=== PATIENT | male | born 1965 | race Caucasian/White ===

== ENCOUNTER → 2023-01-12 | Outpatient (CLI) | payer BC ==
--- NOTE | 2023-01-13 09:41 | CTL ---
Addendum: There is a small hiatal hernia. Lower soft tissues of the neck demonstrate no acute abnormality.
== END | disposition home or self-care (01) ==
LOC: RADCTMAIN 17:06
PROVIDERS: ATTEND Family Medicine
DX: Z12.2 Encounter for screening for malignant neoplasm of respiratory organs (principal); F17.210 Nicotine dependence, cigarettes, uncomplicated; J44.9 Chronic obstructive pulmonary disease, unspecified; I25.10 Atherosclerotic heart disease of native coronary artery without angina pectoris; I51.7 Cardiomegaly
CPT/HCPCS: 71271

== ENCOUNTER 2024-04-10 20:23 | Emergency (ER) | payer OTHER, BC ==
--- NOTE | 2024-04-10 21:20 | ED ---
Lower Extremity Injury HPI - General Chief Complaint: Extremity Injury, Lower Stated Complaint: R leg injury Time Seen by Provider: 04/10/24 21:11 Source: patient, RN notes reviewed Mode of arrival: ambulatory Limitations: no limitations - History of Present Illness Initial Comments: 58-year-old male presenting to the ER with chief complaint of right lower leg injury 2 hours ago. States he was at work when a trailer to a truck accidentally fell on his right chin. States he has a cut on his chin. Denies active bleeding. Denies blood thinners. He is able to weight-bear. - Related Data Home Medications Medication Instructions Recorded Confirmed No Known Home Medications 05/03/17 05/03/17 Allergies Allergy/AdvReac Type Severity Reaction Status Date / Time No Known Allergies Allergy Verified 04/10/24 20:31 Review of Systems ROS Statement: Those systems with pertinent positive or pertinent negative responses have been documented in the HPI. ROS Other: All systems not noted in ROS Statement are negative. Past Medical History Past Medical History: Hyperlipidemia, Hypertension History of Any Multi-Drug Resistant Organisms: None Reported Past Surgical History: Appendectomy, Tonsillectomy Additional Past Surgical History / Comment(s): cyst removal Past Psychological History: No Psychological Hx Reported Smoking Status: Current every day smoker Past Alcohol Use History: None Reported Past Drug Use History: None Reported General Exam Limitations: no limitations General appearance: alert, in no apparent distress Head exam: Present: atraumatic, normocephalic, normal inspection Right Knee exam: Present: normal inspection, full ROM. Absent: tenderness, swelling Lower Leg exam: Present: full ROM, tenderness (Tenderness over anterior right lower leg), swelling, abrasion (2 cm superficial abrasion with no active bleeding) Ankle exam: Present: normal inspection, full ROM. Absent: tenderness, swelling Foot/Toe exam: Present: normal inspection, full ROM. Absent: tenderness, swelling Neurovascular tendon exam: Present: no vascular compromise. Absent: pulse deficit, abnormal cap refill, sensory deficit Neurological exam: Present: alert, oriented X3 Psychiatric exam: Present: normal affect, normal mood Skin exam: Present: warm, dry, intact, normal color. Absent: rash Course Vital Signs 04/10/24 04/10/24 20:29 22:18 Temperature 97.6 F 97.8 F Pulse Rate 65 66 Respiratory 18 17 Rate Blood Pressure 158/93 148/88 O2 Sat by Pulse 96 97 Oximetry Medical Decision Making - Medical Decision Making Was pt. sent in by a medical professional or institution (, LIN, MAINS AND SERVICE SUPERVISOR, urgent care, hospital, or [facility]...) When possible be specific @ -No Did you speak to anyone other than the patient for history (EMS, parent, family, police, friend...)? What history was obtained from this source @ -No Did you review nursing and triage notes (agree or disagree)? Why? @ -I reviewed and agree with nursing and triage notes Were old charts reviewed (outside hosp., previous admission, EMS record, old EKG, old radiological studies, urgent care reports/EKG's, [facility] records)? Report findings @ -No old charts were reviewed Differential Diagnosis (chest pain, altered mental status, abdominal pain women, abdominal pain men, vaginal bleeding, weakness, fever, dyspnea, syncope, headache, dizziness, GI bleed, back pain, seizure, CVA, palpatations, mental health, musculoskeletal)? @ -Differential Musculoskeletal Muscular strain, contusion, ligament sprain, fracture, arthritis, septic arthritis, bursitis, cellulitis, muscle spasm, nerve compression, DVT, arterial occlusion, herpes zoster, electrolyte abnormality, tumor.... This is not meant to be in all inclusive list EKG interpreted by me (3pts min.). @ -None X-rays interpreted by me (1pt min.). @ -X-ray right tib-fib reveals no acute process CT interpreted by me (1pt min.). @ -None done U/S interpreted by me (1pt. min.). @ -None done What testing was considered but not performed or refused? (CT, X-rays, U/S, labs)? Why? @ -None What meds were considered but not given or refused? Why? @ -None Did you discuss the management of the patient with other professionals (professionals i.e. , LIN, MAINS AND SERVICE SUPERVISOR, lab, RT, psych nurse, social work coordinator, shipping weigher, teacher, correction officer reformatory, hospice case manager)? Give summary @ -No Was smoking cessation discussed for >3mins.? @ -No Was critical care preformed (if so, how long)? @ -No Were there social determinants of health that impacted care today? How? (Homelessness, low income, unemployed, alcoholism, drug addiction, transportation, low edu. Level, literacy, decrease access to med. care, alf, rehab)? @ -No Was there de-escalation of care discussed even if they declined (Discuss DNR or withdrawal of care, Hospice)? DNR status @ -No What co-morbidities impacted this encounter? (DM, HTN, Smoking, COPD, CAD, Cancer, CVA, ARF, Chemo, Hep., AIDS, mental health diagnosis, sleep apnea, morbid obesity)? @ -None Was patient admitted / discharged? Hospital course, mention meds given and route, prescriptions, significant lab abnormalities, going to OR and other pertinent info. @ -Discharge. This is a 58-year-old male presenting with right lower leg injury 4 hours ago. Patient states he had a trailer connecting to the back of the truck fall onto his right harvey. He is able to weight-bear. Neurovascularly intact. Physical examination remarkable for abrasion on right anterior harvey with diffuse swelling and tenderness to palpation. Tetanus updated. Ice and analgesics provided. X-ray right tib-fib reveals no acute process. Discussed findings with patient. Appropriate follow-up care and return precautions discussed and patient is agreeable to plan. Case was discussed with my ED attending Dr. Veliz. Undiagnosed new problem with uncertain prognosis? @ -No Drug Therapy requiring intensive monitoring for toxicity (Heparin, Nitro, Insulin, Cardizem)? @ -No Were any procedures done? @ -No Diagnosis/symptom? @ -Right lower leg abrasion Acute, or Chronic, or Acute on Chronic? @ -Acute Uncomplicated (without systemic symptoms) or Complicated (systemic symptoms)? @ -Uncomplicated Side effects of treatment? @ -No Exacerbation, Progression, or Severe Exacerbation? @ -No Poses a threat to life or bodily function? How? (Chest pain, [place], AR, pneumonia, PE, COPD, DKA, ARF, appy, cholecystitis, CVA, Diverticulitis, Homicidal, Suicidal, threat to staff... and all critical care pts) @ -No Disposition Clinical Impression: Right leg injury Disposition: HOME SELF-CARE Condition: Stable Instructions (If sedation given, give patient instructions): Abrasion (ED) Additional Instructions: Apply topical antibiotic as discussed. Elevate and apply ice to affected area. Please return to the Emergency Department if symptoms worsen or any other concerns. Is patient prescribed a controlled substance at d/c from ED?: No Referrals: Soo Beltran MD [Primary Care Provider] - 1-2 days Time of Disposition: 22:05
[2024-04-10] MEDS: DIPH,PERTUS(ACELL)TETVAC-LF 0.5 ML VIAL IM ONE (21:29)
[2024-04-10] MEDS: IBUPROFEN 600 MG TAB PO STA (21:30)
--- NOTE | 2024-04-10 21:35 | XR ---
EXAMINATION TYPE: XR tibia fibula RT DATE OF EXAM: 04/10/2024 9:28 PM COMPARISON: None available. CLINICAL INDICATION: Male, 58 years old with history of right lower leg injury; [facility] TECHNIQUE: XR tibia fibula RT; examined in AP and lateral projections. FINDINGS: No acute fracture or dislocation. No unexpected radiopaque foreign body. No focal osseous e rosion or aggressive periosteal reaction. Try compartmental degenerative arthritis or arthritis parti ally visualized with apparent moderate to severe medial compartment joint space loss. IMPRESSION: No acute fracture or dislocation. [facility], , 04/10/2024 9:32 PM
[2024-04-10 22:20] VITALS: BP 148/88; PULSE 66; RESP 17; TEMP 97.8
== END 2024-04-10 22:18 | disposition home or self-care (01) ==
LOC: EC 20:23
DX: S89.91XA Unspecified injury of right lower leg, initial encounter (principal); F17.200 Nicotine dependence, unspecified, uncomplicated; W17.89XA Other fall from one level to another, initial encounter; Z23 Encounter for immunization
CPT/HCPCS: 90471; 90715; 99283

== ENCOUNTER → 2024-08-15 | Outpatient (CLI) | payer BC ==
--- NOTE | 2024-08-15 11:40 | XR ---
EXAMINATION TYPE: XR lumbosacral spine min 4V, XR thoracic spine 2V DATE OF EXAM: 08/15/2024 11:28 AM INDICATION: Patient age:Male; 59 years old; Reason for study: M43.9 wedge deformity; PHH. pain COMPARISON: CT low-dose lung 01/12/2023 TECHNIQUE: Frontal, lateral, oblique, and coned-down lateral views of the lumbar spine were obtained. Frontal, lateral, and swimmer's views of the thoracic spine were obtained. FINDINGS: No evidence of any acute osseous pathology. There are 5 lumbar type vertebral bodies ident ified. Anterior wedging of the T12 vertebral body with approximately 5% height loss. No retropulsion. Grade 1 anterolisthesis of L4 on L5 without pars defects. Mild multilevel disc space narrowing with endplate sclerosis and osteophytosis. Prominent anterior osteophytosis of the mid to lower thoracic s pine consistent with DISH. Mild atherosclerotic calcification of the aorta. The visualized lungs are clear. IMPRESSION: 1. NO ACUTE PROCESS. 2. CHRONIC-APPEARING ANTERIOR WEDGING OF THE T12 VERTEBRAL BODY WITH APPROXIMATELY 5% HEIGHT LOSS AN D NO RETROPULSION. 3. MILD DEGENERATIVE DISC DISEASE. 4. DISH OF THE THORACIC SPINE. [facility], , 08/15/2024 11:37 AM
--- NOTE | 2024-08-15 13:20 | CTL ---
EXAMINATION TYPE: CT Low Dose Lung DATE OF EXAM ORDERED: 08/15/2024 COMPARISON: 01/12/2023 CLINICAL INDICATION: Male, 59 years old with history of F17.210 nicotine dependence; PHH, NICOTINE DE PENDENCE, Lung cancer screening, History of Smoking/tobacco use. TECHNIQUE: Low dose computed tomography scan was performed through the chest at 1 mm thick sections a nd reconstructed images in multiple planes at 1 mm and [address] DLP: [address] CTDI: 1.84 mGy Automated exposure control for dose reduction was used. CT DIAGNOSTIC QUALITY: Satisfactory FINDINGS: EXAMINATION TYPE: CT Low Dose Lung DATE OF EXAM ORDERED: 08/15/2024 CLINICAL INDICATION: Male, 59 years old with history of F17.210 nicotine dependence, history of tobac co use, Lung cancer screening CT DLP: [address] CTDI: 1.84 mGy Automated exposure control for dose reduction was used. Comparison: None TECHNIQUE: Low dose computed tomography scan was performed through the chest at 1 mm thick sections a nd reconstructed images in multiple planes at 1 mm and [address] DIAGNOSTIC QUALITY: Satisfactory FINDINGS: There is no suspicious lung mass or nodule There is no airspace consolidation. There are chronic interstitial changes in the right middle lobe c onsistent with interstitial scarring and/or atelectasis. There is mild atelectasis in the lung bases posteriorly. There is no mediastinal, hilar or axillary adenopathy. There is no pleural effusion, pleural thickening or pneumothorax. No focal osseous lesions are seen. Limited scans the upper abdomen reveals no gross abnormality IMPRESSION: 1. Lung rads Category 1 negative. Continue routine screening at yearly intervals. 2. No acute cardiopulmonary disease. 3. Mild chronic interstitial changes/atelectasis in the right middle lobe [facility], , 08/15/2024 1:17 PM
== END | disposition home or self-care (01) ==
LOC: RADCTMAIN 10:11
PROVIDERS: ATTEND Family Medicine
DX: Z12.2 Encounter for screening for malignant neoplasm of respiratory organs (principal); F17.210 Nicotine dependence, cigarettes, uncomplicated; M48.54XA Collapsed vertebra, not elsewhere classified, thoracic region, initial encounter for fracture; M51.360 Other intervertebral disc degeneration, lumbar region with discogenic back pain only; M48.14 Ankylosing hyperostosis [Forestier], thoracic region
CPT/HCPCS: 71271; 72070; 72110

== ENCOUNTER 2024-10-08 08:41 | Day surgery (SDC) | payer BC ==
[~2024-10-08 08:41] MED LIST: LIDOCAINE 1% (10MG/ML) FOR IV START INTRADERMA PRN; ONDANSETRON 4 MG/2 ML VIAL IVP PRN
[2024-10-08 09:46] VITALS: TEMP 97.1
[2024-10-08] MEDS: LACTATED RINGERS 1,000 ML IV SCH (09:51)
[2024-10-08] MEDS: LACTATED RINGERS 1,000 ML IV ONE (09:51)
[2024-10-08] MEDS ORDERED: PROPOFOL 10 MG/ML 20 ML VIAL IV ONE (10:07)
--- NOTE | 2024-10-08 10:11 | P.GSHP ---
History of Present Illness H&P Date: 10/08/24 Chief Complaint: Colon cancer screening 59-year-old male here for colonoscopy. Last colonoscopy 11 years ago. No bowel complaints. No family history of colon cancer. Past Medical History Past Medical History: Hyperlipidemia, Hypertension History of Any Multi-Drug Resistant Organisms: None Reported Past Surgical History: Appendectomy, Tonsillectomy Additional Past Surgical History / Comment(s): cyst removal Past Anesthesia/Blood Transfusion Reactions: No Reported Reaction Smoking Status: Current every day smoker - Past Family History Mother Family Medical History: CVA/TIA Father Family Medical History: Myocardial Infarction (MT) Medications and Allergies Home Medications Medication Instructions Recorded Confirmed Type Acetaminophen [Tylenol Arthritis] 650 mg PO DAILY PRN 10/03/24 10/08/24 History Calcium (Unk) 1 tab PO DAILY 10/03/24 10/08/24 History Losartan Potassium 50 mg PO DAILY 10/03/24 10/08/24 History Magnesium (Unk) 1 tab PO DAILY 10/03/24 10/08/24 History Rosuvastatin Calcium 20 mg PO DAILY 10/03/24 10/08/24 History Vit D3 (Unk) 1 tab PO DAILY 10/03/24 10/08/24 History Zinc (Unk) 1 tab PO DAILY 10/03/24 10/08/24 History Allergies Allergy/AdvReac Type Severity Reaction Status Date / Time No Known Allergies Allergy Verified 10/08/24 09:38 Surgical - Exam Vital Signs Temp Pulse Resp BP Pulse Ox 97.1 F L 64 16 142/80 95 10/08/24 09:42 10/08/24 09:42 10/08/24 09:42 10/08/24 09:42 10/08/24 09:42 Physical exam: General: Well-developed, well-nourished HEENT: Normocephalic, sclerae nonicteric Abdomen: Nontender, nondistended Extremities: No edema Neuro: Alert and oriented Assessment and Plan (1) Colon cancer screening Narrative/Plan: Will proceed with colonoscopy at this time. Current Visit: Yes Status: Acute Code(s): Z12.11 - ENCOUNTER FOR SCREENING FOR MALIGNANT NEOPLASM OF COLON SNOMED Code(s): 515028763
--- NOTE | 2024-10-08 10:28 | P.PCN ---
Date of Procedure: 10/08/24 Procedure(s) Performed: PREOPERATIVE DIAGNOSIS: Colon cancer screening POSTOPERATIVE DIAGNOSIS: Colon polyps PROCEDURE: Colonoscopy with snare polypectomy ANESTHESIA: MAC SURGEON: Jose Monet M.D. SPECIMENS: Polyps ENDOSCOPIC PROCEDURE: The patient was placed on the endoscopy table in the left decubitus position. The Olympus colonoscope was inserted into the anus and passed under direct visualization to the base of the cecum. The appendiceal orifice was visualized. From that point the scope was slowly withdrawn inspecting all surfaces carefully. There were no neoplastic inflammatory or polypoid lesions throughout the cecum and ascending colon. In the transverse colon there was a small polyp removed using snare with cautery technique. The remainder of the transverse descending and sigmoid colon appeared normal. In the rectum another small polyp was noted and removed using the snare technique as well. There was no visible diverticulosis. Digital rectal examination was normal. The patient was taken to the recovery room in stable condition per anesthesia guidelines. RECOMMENDATIONS: Resume diet. Await biopsy results. Will contact patient with timing for next colonoscopy.
[2024-10-08 10:46] VITALS: RESP 18
[2024-10-08 11:03] VITALS: BP 119/83; PULSE 60
== END 2024-10-08 11:15 | disposition home or self-care (01) ==
LOC: ORWHC2ENDO 08:41
PROVIDERS: ATTEND Surgery
DX: Z12.11 Encounter for screening for malignant neoplasm of colon (principal); K63.5 Polyp of colon; D12.8 Benign neoplasm of rectum; E78.5 Hyperlipidemia, unspecified; I10 Essential (primary) hypertension; F17.210 Nicotine dependence, cigarettes, uncomplicated; Z90.49 Acquired absence of other specified parts of digestive tract; Z90.89 Acquired absence of other organs; Z79.899 Other long term (current) drug therapy
CPT/HCPCS: 88305; 45385; J2704